=== PATIENT | female | born 1990 | race Two or more races ===

== ENCOUNTER 2024-10-22 17:49 | Emergency (ER) | payer MEDICAID, SELFPAY ==
[2024-10-22 17:50] VITALS: BMI 26.9
[2024-10-22 18:10] VITALS: BP 117/82; PULSE 88; RESP 18; TEMP 36.9; O2SAT 99
--- NOTE | 2024-10-22 18:23 | EDNOTE_ITS ---
<Statement entered by Pippa Noe MD - 10/23/24 05:24> As co-signing physician, I was present and available for consult prn. I concur with the plan and care as documented by the midlevel provider. ED Allergic Reaction RME/HPI General Chief complaint: Allergic Reaction Stated complaint: ALLERGIC REACTION Time Seen by Provider: 10/22/24 18:21 Arrival date/time: 10/22/24 17:49 33F with history of pre-DM presents to ED with several hours of itchy and swollen scalp after some new hair dye was used at the salon. Patient denies SOB and throat swelling. Patient washed out dye when she started having a reaction. Limitations: no limitations Related Data Previous Rx's ?Medication ?Instructions ?Recorded diphenhydramine HCl 25 mg capsule 25 mg PO Q8H PRN all ergic symptoms 05/01/22 (Benadryl) #30 caps hydrocortisone 1 % topical 1 applic topical BID PRN al lergic 10/22/24 solution (Scalp Relief reaction #74 mL (hydrocortisone)) prednisone 20 mg tablet 20 mg PO BID 4 days #8 tabs 10/22/24 Allergies Allergy/AdvReac Type Severity Reaction Status Date / Time No Known Allergies Allergy Mild Verified 10/22/24 17:52 Review of Systems Review of Systems Systems Reviewed: All systems reviewed, normal except as documented Constitutional Constitutional: Reports system reviewed and no additional complaints, except as documented, Denies fever(s) and Denies headache(s) ENT Ears, Nose, Mouth, and Throat: Denies disequilibrium and Denies headache(s) Cardiovascular Cardiovascular: Reports system reviewed and no additional complaints, except as documented, Denies chest pain and Denies dyspnea Respiratory Respiratory: Reports system reviewed and no additional complaints, except as documented, Denies cough and Denies dyspnea Gastrointestinal Gastrointestinal: Reports system reviewed and no additional complaints, except as documented, Denies abdominal pain, Denies nausea and Denies vomiting Integumentary/Breasts Skin/Breast: Reports as per HPI, Reports pruritus and Reports skin swelling Neurologic Neurologic: Reports system reviewed and no additional complaints, except as documented, Denies confusion, Denies disequilibrium and Denies headache(s) Psychiatric Psychiatric: Denies confusion Past Medical History Past Medical History NEUROLOGIC: Negative Neurological Disorders or Seizures CARDIAC: Negative Cardiac Disorders or Congestive Heart Failure RESPIRATORY: Positive Asthma (INHALER PRN); Negative Chronic Obstructive Pulmonary Disease (COPD), Tuberculosis or Sleep Apnea GASTROINTESTINAL: Positive Gastrointestinal Disorders and Gall Bladder Disease; Negative Hepatitis GENITOURINARY: Negative Genitourinary Disorders or Renal Disease REPRODUCTIVE: Positive Previous Pregnancies; Negative Endometriosis, Genital Herpes, Gonorrhea, Pelvic Inflammatory Disease or Syphilis MUSCULOSKELETAL: Negative Musculoskeletal Disorders ENDOCRINE: Negative Endocrine Disorders, Diabetes Mellitus Type 1 or Diabetes Mellitus Type 2 HEMATOLOGIC: Negative Blood Disorders or Anemia OTHER HISTORY: Positive Hospitalization (CHILDBIRTH); Negative Autoimmune Disease, Shingles, Blood Transfusions, Blood Transfusion Reaction, Anesthesia Reactions, Organ Transplant, MRSA, VRSA, Vancomycin- Resistant Enterococci, Human Immunodeficiency Virus (HIV), Chicken Pox, Measles, Mumps, Rubella (Romanian Measles), Pertussis, Clostridium Difficile or Cancer Family History FAMILY HISTORY: Positive Family Respiratory Disorders (GRANDMOTHER ASTHMA), Family Cardiac Disorders (GRANDMOTHER HEART PROBLEMS) and Family Surgery; Negative Family Psychiatric Problems, Family Gastrointestinal Problems, Family Cancer or Family Anesthesia Reaction Surgical History SURGICAL: Positive Abdominal Surgery; Negative Cardiac Surgery, Endocrine Surgery, Ear Surgery, Nephrectomy, Joint Replacement, Neurologic Surgery, Mastectomy, Section, Vasectomy or Organ Transplant Social History SMOKING STATUS: Never smoker ED Exam General Limitations: Present no limitations General appearance: Present alert and in no apparent distress Head Head exam: Present other (swelling/redness around scalp) Eye Eye exam: Present normal appearance, PERRL and EOMI ENT ENT exam: Present normal exam, normal oropharynx and mucous membranes moist Neck Neck exam: Present normal inspection, full ROM and trachea midline Chest Chest inspection: Present normal inspection and symmetric chest wall rise Respiratory Respiratory exam: Present normal lung sounds bilaterally Cardiovascular Cardiovascular exam: Present regular rate, normal rhythm and normal heart sounds Abdominal Exam Abdominal exam: Present soft and normal bowel sounds Extremities Exam Extremities exam: Present normal inspection and full ROM Back Exam Back exam: Present normal inspection and full ROM Neurological Exam Neurological exam: Present alert, oriented X3 and CN II-XII intact Psychiatric Psychiatric exam: Present normal affect and normal mood Skin Skin exam: Present warm, dry, intact and normal color Course Quality Measures none Orders Category Date Time Status Dexamethasone Inj [Decadron Inj] Med 10/22/24 18:21 Discontinued 10 mg PO X1 ONE DiphenhydrAMINE [Benadryl] Med 10/22/24 18:21 Discontinued 25 mg PO X1 ONE Famotidine [Pepcid] Med 10/22/24 18:21 Discontinued 20 mg PO X1 ONE Vital Signs Vital signs: Vital Signs Temperature 98.5 F 10/22/24 18:10 Pulse Rate 88 10/22/24 18:10 Respiratory Rate 18 10/22/24 18:10 Blood Pressure 117/82 10/22/24 18:10 Pulse Oximetry (%) 99 10/22/24 18:10 Oxygen Delivery Method Room Air 10/22/24 18:10 O2 at 99% on RA and WNLs Allergic Reaction MDM Narrative MDM Narrative:: 33F with history of pre-DM presents to ED with several hours of itchy and swo llen scalp after some new hair dye was used at the salon. Patient denies SOB and throat swelling. Patient washed out dye when she started having a reaction. Physical exam reveals redness and swelling around scalp. Normal WOB. Patient is afebrile, calm, and alert. Meds improved symptoms. Patient data External records reviewed:: [facility] previous records Clinical information provided by:: patient Social determinants that could affect healthcare access:: none Patient has the following chronic illnesses:: pre DM How is presenting disease/condition affected by chronic disease/condition?: uneffected by Evaluation data The following diagnostics were reviewed and interpreted by me:: other (specify) (none) Lab and/or radiology exams considered but not ordered:: not ordered Interpretation Summary: n/a Medications / Prescriptions Medications or Prescriptions considered but not ordered:: ordered Medication administrations:: Medication Administration History Discontinued Medications Dexamethasone Sodium Phosphate (Dexamethasone Sod Phos Inj 10 Mg/Ml Vial) 10 mg PO X1 ONE Stop: 10/22/24 18:22 Last Admin: 10/22/24 18:32 Dose: 10 mg Documented By: ALEJANDRA Diphenhydramine HCl (Diphenhydramine 25 Mg Capsule) 25 mg PO X1 ONE Stop: 10/22/24 18:22 Last Admin: 10/22/24 18:32 Dose: 25 mg Documented By: ALEJANDRA Famotidine (Famotidine 20 Mg Tablet) 20 mg PO X1 ONE Stop: 10/22/24 18:22 Last Admin: 10/22/24 18:32 Dose: 20 mg Documented By: ALEJANDRA above Consultations Consultation(s) initiated? (list below): No Diagnosis Differential Diagnosis allergic reaction: anaphylaxis, allergic reaction, angioedema, contact dermatitis, adverse reaction to drug, viral enanthem and urticaria Most likely diagnosis given after review of the tests above:: allergic reaction Admission Indicated Admission indicated?: not indicated Admission Request Was there a request for admission?: No Disposition Plan Disposition Plan: Discharge Discharge Attestation Discharge Attestation: The patient and all family members were given an opportunity to ask questions and understood the discharge instructions. Discharge instructions specifically effects, indications for sooner follow up or return to the emergency department, and the expected course of current diagnosis. Patient condition: Stable Discharge Plan Plan Patient Disposition: HOME (Self Care) Discharge Disposition comment: Stable Prescriptions/Referrals Prescriptions/Med Rec: New prednisone 20 mg tablet 20 mg PO BID 4 Days Qty: 8 0RF Scalp Relief (hydrocortisone) 1 % solution 1 applic topical BID PRN (Reason: allergic reaction) Qty: 74 0RF No Action diphenhydramine HCl [Benadryl] 25 mg capsule 25 mg PO Q8H PRN (Reason: allergic symptoms) Qty: 30 0RF Referrals: No Primary/Family,Physician [Primary Care Provider] - In 1 week Problem List Clinical Impression: Allergic reaction Patient/Caregiver Discharge Instructions Education Materials: ED Medicine Reaction: Allergic Additional Instructions: Please follow-up with PCP within 24-48 hours and return immediately if symptoms worsen. Take OTC antihistamine as needed until symptoms resolve. Finish entire steroid course. Print Language: Pashto Stand Alone Forms: Patient Portal Info Letter RASHARD/MAX Supervising Physician RASHARD/MAX Supervising Physician: Dr. Noe
[2024-10-22] MEDS: DiphenhydrAMINE 25 MG CAPSULE PO (18:32)
[2024-10-22] MEDS: FAMOTIDINE 20 MG TABLET PO (18:32)
[2024-10-22] MEDS: DEXAMETHASONE SOD PHOS INJ 10 MG/ML VIAL PO (18:32)
== END 2024-10-22 20:40 | disposition home or self-care (01) ==
PROVIDERS: Emergency Provider Emergency Medicine
DX: R22.0 Localized swelling, mass and lump, head (principal)
CPT/HCPCS: 99282; J1100; A9270

== ENCOUNTER 2025-03-26 17:04 | Emergency (ER) | payer MEDICAID, SELFPAY ==
[2025-03-26 17:05] VITALS: BMI 25.5
--- NOTE | 2025-03-26 17:08 | EKG_ITS ---
[facility] Test Date: 2025-03-26 Pat Name: PILY PARKER Department: Room: - Gender: Female Shake Sawyer: : 1990 Requested By: ED Temporary Provider Order Number: [id number] Reading MD: ED Temporary Provider Measurements Intervals [place] Rate: 97 P: 43 NM: 137 QRS: 49 QRSD: 68 T: 41 QT: 319 QTc: 407 Interpretive Statements SINUS RHYTHM POSSIBLE LEFT ATRIAL ENLARGEMENT [-0.1mV P-WAVE IN V1/V2] NONSPECIFIC T-WAVE ABNORMALITY Compared to ECG 04/05/2024 22:55:25 Sinus tachycardia no longer present T-wave abnormality still present /store/[id number]
--- NOTE | 2025-03-26 17:42 | EDRME_ITS ---
Rapid Medical Screening Exam RME Arrival date/time: 03/26/25 17:04 Chief Complaint: Weakness RME Narrative: 34 year old female with history of anemia presents to the ED for evaluation of generalized weakness, chest pressure, and shortness of breath beginning yest erday. States her symptoms are exacerbated with exertion. She also reports body aches and dizziness that began yesterday. LMP 03/08/2025 and reports flow to be heavy, changing about 4 tampons a day. Denies any fever, cough, changes in diet.
[2025-03-26 18:09] LABS: Basophils # (Auto) 0.0 Thou/mm3 (0.0-0.2); Basophils % (Auto) 0 % (0-2.5); Eosinophils # (Auto) 0.0 Thou/mm3 (0.0-0.5); Eosinophils % (Auto) 0 % (0-10); Hematocrit 35.8 % (36.0-46.0); Hemoglobin 11.4 g/dL (12.0-16.0); Immature Granulocytes Auto 0.03 Thou/mm3 (0.00-0.00); Lymphocytes # (Auto) 1.7 Thou/mm3 (1.0-4.8); Lymphocytes % (Auto) 19 % (10-50); Mean Corpuscular HGB Conc 31.8 g/dl (31.0-37.0); Mean Corpuscular Hemoglobin 25.5 pg (25.0-35.0); Mean Corpuscular Volume 80 fL (80-100); Monocytes # (Auto) 0.6 Thou/mm3 (0.0-0.8); Monocytes % (Auto) 7 % (0-12); Neutrophils # (Auto) 6.5 Thou/mm3 (1.8-7.7); Neutrophils % (Auto) 74 % (37-80); Nucleated Red Blood Cell # 0.00 Thou/mm3 (0.00-0.00); Nucleated Red Blood Cell % 0 /100 WBC (0); Platelet Count 490 Thou/mm3 (140-440); RDW Standard Deviation 42.6 fL (36.4-46.3); Red Blood Count 4.47 Miln/mm3 (4.00-5.20); White Blood Count 8.9 Thou/mm3 (3.6-11.0)
[2025-03-26 18:13] VITALS: BP 115/81; PULSE 100; RESP 18; TEMP 37.1; O2SAT 99
[2025-03-26 18:20] LABS: HCG,Qualitative Serum Negative
[2025-03-26 18:39] LABS: Alanine Aminotransferase < 7 U/L (10-49); Albumin, Serum 4.4 gm/dL (3.5-5.0); Albumin/Globulin Ratio 1.4 (1.2-2.2); Alkaline Phosphatase 86 U/L (46-116); Anion Gap 10 (7-16); Aspartate Amino Transferase 12 U/L (0-34); BUN/Creatinine Ratio 13 Ratio (12-20); Bilirubin,Total 0.5 mg/dL (0.3-1.2); Blood Urea Nitrogen 9 mg/dL (9-23); Calcium 8.9 mg/dL (8.3-10.6); Calcium (Corrected) 8.9 mg/dL (8.5-10.1); Carbon Dioxide 27.4 mMol/L (20.0-31.0); Chloride 102 mMol/L (98-107); Creatinine (Component) 0.7 mg/dL (0.6-1.3); Estimated Creatinine Clearance 105.0 mL/min (>60); Globulin 3.2 gm/dL (2.3-3.5); Glucose 93 mg/dL (74-106); Magnesium 2.4 mg/dL (1.6-2.6); Osmolality,Calculated 276 (275-295); Potassium 3.5 mMol/L (3.4-5.1); Sodium 139 mMol/L (136-145); Total Protein 7.6 gm/dL (5.7-8.2); eGFR > 60 See Note
--- NOTE | 2025-03-26 19:00 | EDNOTE_ITS ---
ED Weakness RME/HPI General Chief complaint: Weakness Stated complaint: FEEL TIRED AND WEAK SINCE YESTERDAY, CHEST PAIN Arrival date/time: 03/26/25 17:04 RME / HPI RME / HPI Narrative: 34 year old female with history of anemia presents to the ED for evaluation of generalized weakness, chest pressure, and shortness of breath beginning yesterday. States her symptoms are exacerbated with exertion. She also reports body aches and dizziness that began yesterday. LMP 03/08/2025 and reports flow to be heavy, changing about 4 tampons a day. Denies any fever, cough, changes in diet. See [facility] for Dr. Garay's HPI documentation. Related Data Previous Rx's ?Medication ?Instructions ?Recorded diphenhydramine HCl 25 mg capsule 25 mg PO Q8H PRN all ergic symptoms 05/01/22 (Benadryl) #30 caps hydrocortisone 1 % topical 1 applic topical BID PRN al lergic 10/22/24 solution (Scalp Relief reaction #74 mL (hydrocortisone)) Allergies Allergy/AdvReac Type Severity Reaction Status Date / Time No Known Allergies Allergy Mild Verified 03/26/25 17:05 Review of Systems Review of Systems Systems Reviewed: All systems reviewed, normal except as documented Past Medical History Past Medical History NEUROLOGIC: Negative Neurological Disorders or Seizures CARDIAC: Negative Cardiac Disorders or Congestive Heart Failure RESPIRATORY: Positive Asthma (INHALER PRN); Negative Chronic Obstructive Pulmonary Disease (COPD), Tuberculosis or Sleep Apnea GASTROINTESTINAL: Positive Gastrointestinal Disorders and Gall Bladder Disease; Negative Hepatitis GENITOURINARY: Negative Genitourinary Disorders or Renal Disease REPRODUCTIVE: Positive Previous Pregnancies; Negative Endometriosis, Genital Herpes, Gonorrhea, Pelvic Inflammatory Disease or Syphilis MUSCULOSKELETAL: Negative Musculoskeletal Disorders ENDOCRINE: Negative Endocrine Disorders, Diabetes Mellitus Type 1 or Diabetes Mellitus Type 2 HEMATOLOGIC: Negative Blood Disorders or Anemia OTHER HISTORY: Positive Hospitalization (CHILDBIRTH); Negative Autoimmune Disease, Shingles, Blood Transfusions, Blood Transfusion Reaction, Anesthesia Reactions, Organ Transplant, MRSA, VRSA, Vancomycin- Resistant Enterococci, Human Immunodeficiency Virus (HIV), Chicken Pox, Measles, Mumps, Rubella (Nepali Measles), Pertussis, Clostridium Difficile or Cancer Family History FAMILY HISTORY: Positive Family Respiratory Disorders (GRANDMOTHER ASTHMA), Family Cardiac Disorders (GRANDMOTHER HEART PROBLEMS) and Family Surgery; Negative Family Psychiatric Problems, Family Gastrointestinal Problems, Family Cancer or Family Anesthesia Reaction Surgical History SURGICAL: Positive Abdominal Surgery; Negative Cardiac Surgery, Endocrine Surgery, Ear Surgery, Nephrectomy, Joint Replacement, Neurologic Surgery, Mastectomy, Section, Vasectomy or Organ Transplant Social History SMOKING STATUS: Never smoker ED Exam Narrative Physical exam: See [facility] for Dr. Garay's physical exam documentation. Course Quality Measures none Orders Category Date Time Status EKG (ED ONLY) *Do not use* NOW Care 03/26/25 17:08 Completed EKG (ED Only) Stat Exams 03/26/25 17:08 Ordered CBC Stat Lab 03/26/25 17:52 Completed CMP [Comprehensive Metabolic Panel] Stat Lab 03/26/25 17:52 Completed HCG,Qualitative Serum Stat Lab 03/26/25 17:52 Completed Magnesium Stat Lab 03/26/25 17:52 Completed Thyroid Stimulating Hormone Stat Lab 03/26/25 17:52 Completed Vital Signs Vital signs: Vital Signs Temperature 98.7 F 03/26/25 18:13 Pulse Rate 100 03/26/25 18:13 Respiratory Rate 18 03/26/25 18:13 Blood Pressure 115/81 03/26/25 18:13 Pulse Oximetry (%) 99 03/26/25 18:13 Oxygen Delivery Method Room Air 03/26/25 18:13 Weakness [facility] Narrative [facility] Narrative:: This section includes all my notes and documentations, including HPI, PE, and ED course. Chi Garay MD HPI: 34yo female here with generalized weakness and fatigue for the last few days. No cough, nausea, vomiting, fever, or chills. No other complaints reported. ROS: All negative except as documented in HPI. Physical Exam: General: Alert and oriented. No acute distress when remaining still. Eyes: Conjunctivae and lids clear. PERRL. EOMI. ENT: No nasal congestion. Neck: Supple. Heart: RRR. Lungs: No respiratory distress. Good air movement. No rhonchi, wheezing, rales. Abdomen: Soft and nontender. Normal bowel sounds. No distension. No rebound or guarding. Back: No CVA tenderness. Skin: Warm and dry. Neuro: Alert and oriented X 3. No peripheral motor deficits. Cranial nerves II to XII grossly normal. I reviewed all diagnostic test results. My interpretation of the EKG is sinus rhythm with no acute ST?T changes. Blood tests are unremarkable. At this point, diagnoses include: Fatigue of unclear etiology. Recommended more outpatient workup. Based on my best medical judgment, made decision no further evaluation or treatment indicated at this time. Patient understands and agrees to the discharge instructions customized and printed, see below. Discharge Instructions from Dr. Garay printed for you: 1. After evaluation, exact cause of your weakness in the past few days was not determined. 2. But there is no immediately life-threatening condition, such as heart attack. 3. And your red blood cell count is normal (lower end of normal), same for the last 7 years. This isn't causing your sudden weakness in the past few days. 4. To figure out the cause/treatment of your weakness, see a private doctor outside the ER on 03/29/2025 for recheck and further care. Ask for help with more investigation not available here in the ER. Such as Holter Monitor (cardiac monitoring at home from a day to even a month), heart stress test (on treadmill or with medication), echocardiogram (imaging of your heart structures), heart catherization (checking for blockages in your heart arteries), and referrals to see bone worker and other specialists. 5. Seek immediate medical care with worsening or with any concerns. Chi Garay MD Patient data External records reviewed:: [facility] previous records (Per chart review, patient was seen here on 10/22/24 for allergic reaction.) Clinical information provided by:: patient Social determinants that could affect healthcare access:: none Patient has the following chronic illnesses:: asthma How is presenting disease/condition affected by chronic disease/condition?: uneffected by Evaluation data The following diagnostics were reviewed and interpreted by me:: lab results and EKG tracing(s) Lab and/or radiology exams considered but not ordered:: none Interpretation Summary: I reviewed all diagnostic test results. My interpretation of the EKG is sinus rhythm with no acute ST?T changes. Blood tests are unremarkable. Medications / Prescriptions Medications or Prescriptions considered but not ordered:: none Medication administrations:: none Consultations Consultation(s) initiated? (list below): No Diagnosis Weakness Differential Diagnosis: anemia, hypoglycemia and dehydration Most likely diagnosis given after review of the tests above:: Fatigue of unclear etiology Admission Indicated Admission indicated?: not indicated Explain why admission is indicated or not indicated:: With no condition needing emergent intervention, there was no indication for admission. Admission Request Was there a request for admission?: No Disposition Plan Disposition Plan: Discharge Discharge Attestation Discharge Attestation: The patient and all family members were given an opportunity to ask questions and understood the discharge instructions. Discharge instructions specifically effects, indications for sooner follow up or return to the emergency department, and the expected course of current diagnosis. Patient condition: Stable Discharge Plan Plan Patient Disposition: HOME (Self Care) Prescriptions/Referrals Prescriptions/Med Rec: No Action Scalp Relief (hydrocortisone) 1 % solution 1 applic topical BID PRN (Reason: allergic reaction) Qty: 74 0RF diphenhydramine HCl [Benadryl] 25 mg capsule 25 mg PO Q8H PRN (Reason: allergic symptoms) Qty: 30 0RF Referrals: Liset Downs FNP [Primary Care Provider] - In 1 week Problem List Clinical Impression: Fatigue Patient/Caregiver Discharge Instructions Discharge Activity: activity as tolerated Education Materials: ED Weakness (Uncertain Cause) Additional Instructions: Discharge Instructions from Dr. Garay printed for you: 1. After evaluation, exact cause of your weakness in the past few days was not determined. 2. But there is no immediately life-threatening condition, such as heart attack. 3. And your red blood cell count is normal (lower end of normal), same for the last 7 years. This isn't causing your sudden weakness in the past few days. 4. To figure out the cause/treatment of your weakness, see a private doctor outside the ER on 03/29/2025 for recheck and further care. Ask for help with more investigation not available here in the ER. Such as Holter Monitor (cardiac monitoring at home from a day to even a month), heart stress test (on treadmill or with medication), echocardiogram (imaging of your heart structures), heart catherization (checking for blockages in your heart arteries), and referrals to see bone worker and other specialists. 5. Seek immediate medical care with worsening or with any concerns. Print Language: Latvian Stand Alone Forms: Lexie Award Info., Patient Portal Info Letter
[2025-03-26 19:30] LABS: Thyroid Stimulating Hormone 1.21 uIU/mL (0.55-4.78)
== END 2025-03-26 20:09 | disposition home or self-care (01) ==
PROVIDERS: Family Medicine; Emergency Provider Emergency Medicine; PCP Nurse Practitioner
DX: R53.83 Other fatigue (principal); R53.1 Weakness; R42 Dizziness and giddiness; R07.89 Other chest pain; R06.02 Shortness of breath
CPT/HCPCS: 36415; 80053; 81001; 83735; 84443; 84703; 85025; 93005; 99283